=== PATIENT | female | born 2000 | race Caucasian/White ===

== ENCOUNTER 2024-05-03 14:25 | Emergency (ER) | payer OTHER, MEDICAID ==
[~2024-05-03] VITALS: Ht 162.6 cm; Wt 95.4 kg
[2024-05-03 14:36] VITALS: BP 124/81; PULSE 83; RESP 16; TEMP 98.2; O2SAT 97
== END 2024-05-03 16:05 | disposition home or self-care (01) ==
LOC: MED 14:25
DX: M25.512 Pain in left shoulder (principal); R51.9 Headache, unspecified; R20.2 Paresthesia of skin; V49.9XXA Car occupant (driver) (passenger) injured in unspecified traffic accident, initial encounter; Y93.89 Activity, other specified; Y92.89 Other specified places as the place of occurrence of the external cause; Y99.8 Other external cause status
CPT/HCPCS: 73030; 81025; 99283